=== PATIENT | female | born 1935 | race Caucasian/White ===

== ENCOUNTER 2019-09-10 11:56 | Emergency (ER) | payer MEDICARE, SELFPAY ==
[2019-09-10 11:55] VITALS: BP 156/73; PULSE 79; RESP 20; TEMP 36.6; O2SAT 93
--- NOTE | 2019-09-10 11:59 | DI.CT_ITS ---
EXAM: CT CERVICAL SPINE WO CLINICAL HISTORY: woke up with severe pain, h/o arthritis TECHNIQUE: CT examination of the cervical spine was performed utilizing multi slice acquisition and multiplanar reconstruction. COMPARISON: No exams were available for comparison FINDINGS: The visualized sino-orbital structures appear intact. Mastoid air cells are clear and temporal bone structures appear intact. There are severe degenerative changes of the cervical spine with marked fa cet hypertrophic changes throughout. No gross central canal spinal stenosis. No fracture or disloca tion. Tracheolaryngeal structures appear intact. No cervical mass or adenopathy. IMPRESSION: No evidence of acute cervical spine injury.
[2019-09-10] MEDS: Ketorolac 15 MG/ML VIAL IM (12:25)
[2019-09-10] MEDS: Normal Saline Flush 10 ML SYR IVP (12:25)
[2019-09-10] MEDS: Normal Saline 1,000 ML 150 ML IV (12:25)
[2019-09-10] MEDS: diazePAM 2 MG TAB PO (12:30)
[2019-09-10 12:37] LABS: Absolute Basophil Count 0.02 k/cumm (0.0-0.2); Absolute Eosinophil Count 0.05 k/cumm (0.0-0.7); Absolute Lymphocyte Count 0.69 k/cumm (1.2-3.4); Absolute Monocyte Count 0.58 k/cumm (0.11-0.7); Absolute Neutrophil Count 5.15 k/cumm (1.2-6.7); Basophils % 0.3; Eosinophils % 0.8; HCT 33.9 % (36.0-46.0); HGB 10.1 g/dL (12.0-15.5); Lymphocytes % 10.6; Mean Corp. HGB Concentration 29.8 g/dL (32.0-36.0); Mean Corpuscular Hemoglobin 27.2 pg (27.0-33.0); Mean Corpuscular Volume 91.4 fL (80-95); Mean Platelet Volume 9.1 fL (8.0-11.0); Monocytes % 8.9; Neutrophils % 79.4; Platelet Count 287 x1000/uL (130-400); RBC 3.71 m/cumm (4.00-5.20); RBC Distribution Width 16.7 % (11.7-14.6); White Blood Cell Count 6.49 k/cumm (4.4-10.8)
[2019-09-10 12:50] LABS: ALT 25 U/L (14-59); AST 19 U/L (15-37); Albumin 3.8 g/dL (3.4-5.0); Alkaline Phosphatase 106 U/L (46-116); BUN 28 mg/dL (7-18); Bilirubin, Total 0.9 mg/dL (0.2-1.0); CREATININE 1.81 mg/dL (0.55-1.02); Calcium 9.2 mg/dL (8.5-10.1); Chloride 104 mmol/L (98-107); Glucose 106 mg/dL (70-100); Potassium 3.5 mmol/L (3.5-5.1); Sodium 142 mmol/L (136-145); Total Protein 7.5 g/dL (6.4-8.2)
--- NOTE | 2019-09-10 13:04 | ED.GENADUL_ITS ---
Discharge Plan Disposition Patient Disposition: HOME Discharge Details Chief Complaint: Nausea/Vomit/Diar Clinical Impression: Acute neck pain, Anemia, Chronic kidney disease, Loose stools Primary Care Provider: Chastity Sadler ED Provider: Quoc Allen Home Meds and New Rx's Prescriptions: Continued furosemide [Lasix] 40 mg Tablet 60 mg PO DAILY RF: 0 buspirone 5 mg Tablet 5 mg PO DAILY RF: 0 amiodarone 200 mg Tablet 200 mg PO DAILY RF: 0 medroxyprogesterone 5 mg Tablet 5 mg PO RF: 0 paroxetine HCl 20 mg Tablet 20 mg PO DAILY RF: 0 warfarin 2 mg Tablet 2 mg PO DAILY RF: 0 hydrocodone-acetaminophen [Vicodin] 5-300 mg Tablet 1 tab PO PRNRF: 0 cholecalciferol (vitamin D3) [Vitamin D3] 5,000 unit Tablet 1 DAILY RF: 0 levothyroxine 75 mcg Capsule 70 mcg PO DAILY RF: 0 Discontinued acetaminophen [Tylenol Extra Strength] 500 mg Tablet 2 mg PO PRN PRNRF: 0 Discharge Instructions Instructions: Anemia (ED), Neck Pain (ED) Additional Instructions: Please use neck collar as needed for comfort. Please take acetaminophen (tylenol) - 650mg every 6 hours by mouth as needed for pain. Please contact your primary care physician to arrange follow-up. Return to the ER for any worsening or new concerning symptoms. Referrals: Chastity Sadler [Primary Care Provider] - Discharge Data Discharge Date/Time-TO BE ENTERED AT DEPARTURE: 09/10/19 15:45 Medical Decision Making 13:00 --83-year-old female with multiple medical problems including history of arthritis of the neck, anemia, presents with posterior left lateral neck pain that started upon waking this morning. Patient notes no traumatic injury. Patient also with loose dark stool today. No blood on exam. Heme-negative. Patient is on iron supplementation. Consider electrolyte abnormalities. Consider potential fracture. Will CT cervical spine. We will give low dose of Toradol IV and Valium. --CT interpreted by radiology: Significant chronic degenerative changes without acute fracture. --Labs reviewed and anemia noted. Elevated creatinine noted. 14:21 --patient reassessed and feels much better. Now able to range her neck. I called and spoke with the patient's PCP about the patient's ED presentation and course including diagnostics. PCP notes hemoglobin of 10.1 is improved from recent prior. They also note stable elevated creatinine. Plan will be for outpatient follow-up with PCP. Disposition decision was made weighing the risks and benefits of hospitalization versus outpatient treatment, the risk for further decompensation, and the patient's wishes. The patient was stable and requested discharge. Prior to discharge, my usual and customary return precautions were reviewed with the patient - this included follow-up instructions and reason to return to the emergency department if condition worsens, does not improve as expected, or other new concerns arise. HPI General Mode of arrival: ambulatory . Date/Time Provider Initiated Documentation: 09/10/19 11:59 . Limitations to Documentation: no limitations . Information obtained by: patient . HPI Narrative: 83-year-old female presents with chief complaint of neck pain. Patient notes she woke up this morning with pain in her posterior left neck. Pain radiates up to her occiput. Pain feels muscular. Pain is worse with movement of her neck. Patient denies known injury. She does state that she has arthritis of her neck. She does believe that anxiety is contributing to her discomfort. She also notes associated loose stool today. Stool is black but she has been on a iron supplement for the past 1 to 2 weeks. She denies abdominal pain. No chest pain. Related Data Home Medications Medication Instructions Recorded Confirmed amiodarone 200 mg PO DAILY 09/10/19 09/10/19 buspirone 5 mg PO DAILY 09/10/19 09/10/19 cholecalciferol (vitamin D3) 1 DAILY 09/10/19 [Vitamin D3] furosemide [Lasix] 60 mg PO DAILY 09/10/19 09/10/19 hydrocodone-acetaminophen [Vicodin] 1 tab PO PRN 09/10/19 levothyroxine 70 mcg PO DAILY 09/10/19 09/10/19 medroxyprogesterone 5 mg PO 09/10/19 paroxetine HCl 20 mg PO DAILY 09/10/19 09/10/19 warfarin 2 mg PO DAILY 09/10/19 09/10/19 Allergies Allergy/AdvReac Type Severity Reaction Status Date / Time ciprofloxacin Allergy Dizziness/L Unverified 09/10/19 12:08 ightheade oxycodone Allergy Itching Unverified 09/10/19 12:08 sulfamethoxazole Allergy Skin Rash Unverified 09/10/19 12:08 [From Bactrim] trimethoprim [From Bactrim] Allergy Skin Rash Unverified 09/10/19 12:08 aspirin AdvReac Unverified 09/10/19 12:08 General Stated Complaint: Nausea/Vomit/Diar DEEDEE: 3 Review of Systems All systems reviewed & are unremarkable except as noted in HPI and below Gastrointestinal Gastrointestinal: Reports as per HPI Musculoskeletal Musculoskeletal: Reports as per HPI PFS Social History Smoking/Tobacco Use Status: Former Tobacco Use Quit Date: 11/04/83 Alcohol Intake: current Alcohol Intake frequency: 0-2 drinks per day Alcohol type: wine Substance use type: does not use Details: uses CBD cream topically Do you feel safe at home: Yes Do you feel safe in your relationship?: Yes Exam Const General: cooperative and no acute distress HENMT Head: normocephalic and atraumatic Mouth: moist mucous membranes Eyes Conjunctivae: normal conjunctivae Sclera: normal sclerae Neck Neck: limited ROM (pain posteriorly with movement), trachea midline and supple Resp Auscultation: clear to auscultation bilaterally, no rales, no rhonchi and no wheezes Cardio Jugular venous pressure: no JVD Rate: regular rate and not tachycardic Rhythm: regular rhythm Heart Sounds: murmur systolic II/ GI Palpation: soft, not firm, no guarding, no masses, not rigid and nontender Auscultation: normal bowel sounds Rectal Exam - female: visual inspection normal and heme negative stool Skin General skin exam: pallor Neuro General: alert, awake and tone normal Extrem General: no edema Psych Appearance: grossly normal Mental Status: mental status grossly normal Speech and Movement: speech and movement normal Course Vital Signs Vital signs: Vital Signs Temperature 36.6 C 09/10/19 11:55 Pulse 79 09/10/19 11:55 Respiratory Rate 20 09/10/19 11:55 Blood Pressure 156/73 H 09/10/19 11:55 Pulse Oximetry 93 L 09/10/19 11:55 Temperature 36.6 C 09/10/19 11:55 Temperature Source Skin 09/10/19 11:55 Pulse 79 09/10/19 11:55 Respiratory Rate 20 09/10/19 11:55 Blood Pressure 156/73 H 09/10/19 11:55 Pulse Oximetry 93 L 09/10/19 11:55 Oxygen Delivery Method Room Air 09/10/19 11:55 Oxygen Flow Rate 0 09/10/19 11:55 Pain Level 10 09/10/19 11:55 Comment 09/10/19 11:55 Lab/Test Results Lab/Test Results: Laboratory Tests Range/Units 09/10/19 09/10/19 12:25 12:25 WBC (4.4-10.8) k/cumm 6.49 RBC (4.00-5.20) m/cumm 3.71 L Hgb (12.0-15.5) g/dL 10.1 L Hct (36.0-46.0) % 33.9 L MCV (80-95) fL 91.4 MCH (27.0-33.0) pg 27.2 MCHC (32.0-36.0) g/dL 29.8 L RDW (11.7-14.6) % 16.7 H Plt Count (130-400) x1000/uL 287 MPV (8.0-11.0) fL 9.1 Immature Gran % 0.0 Neutrophils % 79.4 Lymphocytes % 10.6 Monocytes % 8.9 Eosinophils % 0.8 Basophils % 0.3 Absolute Neutrophils (1.2-6.7) k/cumm 5.15 Absolute Lymphocytes (1.2-3.4) k/cumm 0.69 L Absolute Monocytes (0.11-0.7) k/cumm 0.58 Absolute Eosinophils (0.0-0.7) k/cumm 0.05 Absolute Basophils (0.0-0.2) k/cumm 0.02 Sodium (136-145) mmol/L 142 Potassium (3.5-5.1) mmol/L 3.5 Chloride (98-107) mmol/L 104 Carbon Dioxide (21.0-32.0) mmol/L 25.0 Anion Gap (3-11) mmol/L 13.0 H BUN (7-18) mg/dL 28 H Creatinine (0.55-1.02) mg/dL 1.81 H Estimated GFR/1.73 m2 (mL/min/1.73m2) 26.70 Glucose (70-100) mg/dL 106 H Calcium (8.5-10.1) mg/dL 9.2 Total Bilirubin (0.2-1.0) mg/dL 0.9 AST (15-37) U/L 19 ALT (14-59) U/L 25 Alkaline Phosphatase (46-116) U/L 106 Total Protein (6.4-8.2) g/dL 7.5 Albumin (3.4-5.0) g/dL 3.8
[2019-09-10 13:22] LABS: INR 2.2 (0.9-1.1); Prothrombin Time 21.7 sec (9.3-11.0)
[2019-09-10 14:07] VITALS: BP 129/73; PULSE 79; RESP 20; TEMP 37.1; O2SAT 91
--- NOTE | 2019-09-10 14:42 | NUR.NOTE ---
patient's daughter states that patient is not taking care of herself, does not get out of bed, does not bathe, just stays in her home and drinks. daughter requested additional help in dealing with this. spoke with Dr. 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 Radha from is speaking with family currently about this.
[2019-09-10 15:25] VITALS: BP 126/67; PULSE 72; RESP 18; TEMP 36.7; O2SAT 94
[2019-09-10 15:45] VITALS: BP 126/67; PULSE 72; RESP 18; TEMP 36.7; O2SAT 94
--- NOTE | 2019-09-10 16:19 | PDOC.ERCMPRO ---
- If Service Date Differs Date of service: 09/10/19 Time of Service: 16:19 Care Management Progress Note CM called to ED to see patient.
== END 2019-09-10 15:45 | disposition home or self-care (01) ==
PROVIDERS: Emergency Provider Student in an Organized Health Care Education/Training Program; PCP Registered Nurse
DX: M54.2 Cervicalgia (principal); M46.92 Unspecified inflammatory spondylopathy, cervical region; D63.1 Anemia in chronic kidney disease; N18.9 Chronic kidney disease, unspecified; R19.7 Diarrhea, unspecified
CPT/HCPCS: 36415; 80053; 96360; 96361; 96372; 99284; 72125; 85025; 85610; J1885; L0120